=== PATIENT | female | born 1970 | race Caucasian/White ===

== ENCOUNTER 2019-08-03 10:35 | Day surgery (SDC) | payer BC ==
[~2019-08-03] VITALS: Ht 165.1 cm; Wt 79.8 kg
[~2019-08-03 10:35] MED LIST: BUPIVACAINE/EPIN 0.25% 30 ML VIAL As Ordered ONE; LR 1,000 ML IV ONE; MULTCAP PO; ceFAZolin SOD 2 GM in IV 1 EA IV ONE
[2019-08-03 11:01] LABS: HEMATOCRIT 39.7 % (36.0-47.0); HEMOGLOBIN 12.8 g/dl (12.0-15.5); MEAN CORPUSCULAR HEMOGLOBIN 30.7 pg (27.0-33.0); MEAN CORPUSCULAR HGB CONC 32.2 g/dl (32.0-36.5); MEAN CORPUSCULAR VOLUME 95.2 fl (80.0-96.0); PLATELET COUNT, AUTOMATED 335 10^3/uL (150-450); RED BLOOD COUNT 4.17 10^6/uL (4.00-5.40); WHITE BLOOD COUNT 7.8 10^3/uL (4.0-10.0)
[2019-08-03 11:25] LABS: BLOOD UREA NITROGEN 10 MG/DL (7-18); CARBON DIOXIDE LEVEL 26 MEQ/L (21-32); CHLORIDE LEVEL 109 MEQ/L (98-107); CREATININE FOR GFR 0.76 MG/DL (0.55-1.30); GLOMERULAR FILTRATION RATE > 60.0 (>58); GLUCOSE, FASTING 94 MG/DL (70-100); POTASSIUM SERUM 3.7 MEQ/L (3.5-5.1); SODIUM LEVEL 141 MEQ/L (136-145)
[2019-08-03] MEDS ORDERED: LIDOCAINE 2% INJ 100 MG/5 ML SDV (FOR ANES.) As Ordered ONE (13:38)
[2019-08-03] MEDS ORDERED: MIDAZOLAM INJ 2 MG/2 ML VIAL (J2250) As Ordered ONE (13:38)
[2019-08-03] MEDS ORDERED: fentaNYL 250 MCG/5 ML INJECTION (J3010) As Ordered ONE (13:38)
[2019-08-03] MEDS ORDERED: dexameTHASONE 4 MG/ML 1ML VIAL (J1100) As Ordered ONE ×2 (13:38→16:11)
[2019-08-03] MEDS ORDERED: ONDANSETRON 4MG/2ML VIAL (J2405) As Ordered ONE (13:38)
[2019-08-03] MEDS ORDERED: ROCURONIUM BROMIDE 50 MG/5 ML VIAL As Ordered ONE ×2 (13:39→16:03)
[2019-08-03] MEDS ORDERED: propofoL 200 MG/20 ML VIAL As Ordered ONE ×2 (13:39→16:11)
[2019-08-03] MEDS ORDERED: FLUORESCEIN 10% (100MG/ML) 5 ML VIAL As Ordered ONE (15:03)
[2019-08-03] MEDS ORDERED: SCOPOLAMINE 1MG TRANSDERMAL PATCH As Ordered ONE (15:09)
[2019-08-03] MEDS ORDERED: LACRILUBE (AKWA TEARS) OPHTH OINT 3.5 GM As Ordered ONE (15:12)
[2019-08-03] MEDS ORDERED: SCOPOLAMINE 1MG TRANSDERMAL PATCH TOP ONE (16:00)
[2019-08-03] MEDS ORDERED: METOCLOPRAMIDE INJ 10MG/2ML VIAL (J2765) As Ordered ONE (16:12)
[2019-08-03] MEDS ORDERED: KETOROLAC 60 MG/2 ML VIAL (J1885) As Ordered ONE (16:12)
[2019-08-03] MEDS ORDERED: HYDROmorphone HCL 2 MG/ML 1ML VIAL (J1170) As Ordered ONE (16:21)
[2019-08-03] MEDS ORDERED: SUGAMMADEX SODIUM 500 MG/5 ML VIAL (BRIDION) As Ordered ONE (17:23)
[2019-08-03] MEDS ORDERED: DESFLURANE 240 ML INHALANT As Ordered ONE (17:24)
[2019-08-03] MEDS ORDERED: ACETAMINOPHEN 1000MG 100ML IV BTL (OFIRMEV) (J0131 PER 10MG) As Ordered ONE (17:29)
[2019-08-03] MEDS ORDERED: fentaNYL 100 MCG/2 ML INJECTION (J3010) As Ordered ONE (17:42)
[2019-08-03] MEDS ORDERED: LR 1,000 ML IV SCH (17:54)
[2019-08-03] MEDS ORDERED: PERCOCET 5MG/325MG TAB PO PRN (18:00)
[2019-08-03] MEDS ORDERED: ONDANSETRON 4 MG TAB (S0181) PO PRN (18:00)
[2019-08-03] MEDS ORDERED: PERCOCET PO (18:00)
[2019-08-03] MEDS ORDERED: IBUP80TA PO (18:00)
[2019-08-03] MEDS ORDERED: PROMETHAZINE INJ 25 MG/ML VIAL (J2550) IV PRN (18:15)
[2019-08-03] MEDS ORDERED: ONDANSETRON 4MG/2ML VIAL (J2405) IV PRN (18:15)
[2019-08-03] MEDS ORDERED: fentaNYL 100 MCG/2 ML INJECTION (J3010) IV PRN (18:15)
[2019-08-03 20:00] VITALS: BP 113/66
[2019-08-03 20:30] VITALS: BP 102/58
[2019-08-03 21:00] VITALS: BP 106/57
[2019-08-03] MEDS: DOCUSATE SODIUM 100 MG CAP PO SCH (21:44)
[2019-08-03 22:00] VITALS: BP 95/54
[2019-08-03] MEDS: KETOROLAC 30 MG/ML VIAL (J1885) IV SCH (22:48)
[2019-08-03 23:00] VITALS: BP 96/56
[2019-08-04] VITALS: BP 109/57
[2019-08-04 01:00] VITALS: BP 95/51
[2019-08-04] MEDS: KETOROLAC 30 MG/ML VIAL (J1885) IV SCH (04:31)
[2019-08-04 05:00] VITALS: BP 103/58
[2019-08-04 07:59] LABS: BASO % 0.1 % (0.0-1.0); EOS % 0.4 % (0.0-3.0); HEMATOCRIT 32.5 % (36.0-47.0); LYMPH # 1.8 10^3/uL (1.5-5.0); LYMPH % 26.6 % (24.0-44.0); MEAN CORPUSCULAR HEMOGLOBIN 30.3 pg (27.0-33.0); MEAN CORPUSCULAR HGB CONC 32.3 g/dl (32.0-36.5); MEAN CORPUSCULAR VOLUME 93.7 fl (80.0-96.0); MONO # 0.7 10^3/uL (0.0-0.8); MONO % 10.4 % (0.0-5.0); NEUTROPHILS # 4.2 10^3/uL (1.5-8.5); NEUTROPHILS % 61.9 % (36.0-66.0); PLATELET COUNT, AUTOMATED 265 10^3/uL (150-450); RED BLOOD COUNT 3.47 10^6/uL (4.00-5.40); WHITE BLOOD COUNT 6.7 10^3/uL (4.0-10.0)
[2019-08-04 08:16] LABS: HEMOGLOBIN 10.5 g/dl (12.0-15.5)
--- NOTE | 2019-08-04 08:18 | RO ---
DATE OF PROCEDURE: Data dictating the operative report on patient Zenaida Martinez date of procedure 08/03/2019 Macrina is a 49-year-old female with an extensive history of excessive bleeding, enlarged fibroid uterus. After counseling in the office a decision was made to proceed with a robotic-assisted total hysterectomy, removal both tubes and ovaries and cystoscopy. PREOPERATIVE DIAGNOSIS: 1. Excessive bleeding. 2. Enlarged fibroid uterus. POSTOPERATIVE DIAGNOSIS: 1. Excessive bleeding. 2. Enlarged fibroid uterus. PROCEDURE: 1. Robotic-assisted total hysterectomy. 3. Bilateral salpingo-oophorectomy. 3. Cystoscopy. ANESTHESIA: General. SURGEON: Dr. Gomez COMPLICATIONS: None. ESTIMATED BLOOD LOSS: 150 mL. SPECIMEN SENT TO THE LAB: The uterus, cervix, tubes and ovaries. FINDINGS: Enlarged fibroid uterus normal of normal appearing ovaries on cystoscopy bilateral ureteral jets were noted. No evidence of any bladder injury. After obtaining informed consent the patient was taken to the operating room where general anesthetic was found be adequate. She was then draped and prepped usual sterile fashion in dorsal lithotomy position. At this point a Santiago catheter was placed in the bladder for drainage. We then used a weighted speculum and the HUMI II uterine manipulator was placed. At this point attention was turned to the abdomen where the abdomen was insufflated with CO2 gas then supraumbilical incision was made for the 8 mm trocar as well as the laparoscope. These were inserted under direct visualization. We then placed to left 8 mm lateral port for robotic arm two and the assist port and on the right and 8 mm port was closed. The patient was then placed in steep Trendelenburg. The robot was brought to the patient's right side and was docked after docking the camera port. The device was then targeted and the round arm one and arm two was then placed. A vessel sealer was placed in arm one and bipolar grasper in arm two. Those the instruments were placed under direct visualization. I then unscrubbed and went to the surgeon console and began the surgery. The infundibular pelvic ligament was identified. This was cauterized and cut using the vessel sealer. It was taken all the day down to the round ligament and to the uterine artery. After cauterizing the uterine artery the anterior leaflet of the broad ligament was dissected anteriorly to create a bladder flap. The opposite side was done in similar fashion. The anterior leaflet on that side was also dissected the bladder was pushed out of the operative field after securing both uterines the vessel sealer was removed and Endo shear placed anterior and posterior colpotomy was done the uterus was then repaired remove the uterus, ovaries, tubes and fibroids were removed through the vagina. A moistened sponge lap was placed in the vagina to maintain pneumoperitoneum. I then wiped the surgeon console and have the endoshear removed and switched to needle starting gate driver 2-0 V-Loc suture was inserted to the assist port and the vaginal cuff was then closed in a running fashion using the 2-0 V-Loc suture. The surface of the vaginal cuff was found to be slightly oozing. At this point Tyrese was used and the peritoneum over the vaginal cuff was also closed. Good hemostasis noted. The instruments were removed. One mL of Furacin was given by ny and that anesthesiologist to assist in the cystoscopy. The bladder was then retrograde filled with 230 mL of normal saline. Santiago catheter was removed. Cystoscope inserted. Bilateral ureteral jets noted. No evidence of any bladder injury noted. At this point the cystoscope was removed the Santiago catheter was replaced back in the bladder. We then turned our attention to the abdomen where the trocars were removed and the operative sites were closed using 3-0 Vicryl in a subcuticular fashion. Dermabond placed. 0.25% Marcaine placed for postoperative pain. The patient tolerated procedure well. She was then transferred to recovery room in stable condition.
[2019-08-04] MEDS: DOCUSATE SODIUM 100 MG CAP PO SCH (09:00)
[2019-08-04] MEDS ORDERED: IBUPROFEN 800 MG TAB PO SCH (20:00)
== END 2019-08-04 10:33 | disposition home or self-care (01) ==
LOC: M SDC 10:35 → ENRESERVDT 18:15 → ENRESERVTM 18:15 → M MS4PR 21:14 → M SDC 08-04 10:33
PROVIDERS: ATTEND Obstetrics & Gynecology
DX: N92.1 Excessive and frequent menstruation with irregular cycle (principal); N83.02 Follicular cyst of left ovary; D25.1 Intramural leiomyoma of uterus; D25.0 Submucous leiomyoma of uterus; D25.2 Subserosal leiomyoma of uterus; Z98.84 Bariatric surgery status
CPT/HCPCS: 36415; 58571; 80048; 81025; 85025; 85027; 86850; 86900; 86901; 88307; 96374; 96376; J0131; J0690; J1100; J1170; J1885; J2250; J2405; J2765; J3010

== ENCOUNTER → 2019-08-12 | Outpatient (REF) | payer BC ==
[~2019-08-12] MED LIST changes: -BUPIVACAINE/EPIN 0.25% 30 ML VIAL As Ordered ONE; +IBUP80TA PO; -LR 1,000 ML IV ONE; +PERCOCET PO; -ceFAZolin SOD 2 GM in IV 1 EA IV ONE
[2019-08-12 17:37] LABS: FOLATE > 24.0 NG/ML; VITAMIN B12 LEVEL 1062 PG/ML
== END ==
LOC: M LAB REF 16:34
PROVIDERS: ATTEND Registered Nurse
DX: Z98.84 Bariatric surgery status (principal)